=== PATIENT | male | born 1950 | race Caucasian/White ===

== ENCOUNTER → 2019-05-23 | Outpatient (CLI) | payer MEDICARE, OTHER | LOC: COL.VAS 09:59 | DX: N18.4 Chronic kidney disease, stage 4 (severe) (principal) ==

== ENCOUNTER 2021-01-19 15:47 | Inpatient (IN) | payer MEDICARE, OTHER ==
[~2021-01-19] VITALS: Ht 170.2 cm; Wt 102.0 kg
[2021-01-19] MEDS ORDERED: ASPIRIN 81M81 MG/TA2 PO (15:54)
[2021-01-19] MEDS ORDERED: SARAFEM20 M1 PO (15:55)
[2021-01-19] MEDS ORDERED: ZEBETA 5MG5 MG PO (15:55)
[2021-01-19] MEDS ORDERED: COZAAR100 MG PO (15:56)
[2021-01-19] MEDS ORDERED: PLAVIX 75MG TAB75 MG PO (15:57)
[2021-01-19] MEDS ORDERED: SODIUM BICARBO650 MG PO (15:58)
[2021-01-19] MEDS ORDERED: LASIX 40MG TABL40 MG PO (15:59)
[2021-01-19 16:00] VITALS: BP 151/97; PULSE 62; TEMP 97.8
[2021-01-19] MEDS ORDERED: LIPITOR 80MG80 MG PO (16:02)
[2021-01-19] MEDS ORDERED: MASON NATURAL2000 IU PO (16:03)
[2021-01-19] MEDS ORDERED: FLOMAX 0.40.4 MG/CAP PO (16:04)
[2021-01-19] MEDS ORDERED: NORVASC 10MG10 MG PO (16:04)
[2021-01-19 17:13] LABS: BASO # 0.1 K/mm3 (0.0-0.2); BASO % 0.8 % (0.0-2.0); EOS # 0.3 K/mm3 (0.0-0.7); EOS % 4.7 % (0-4.0); GRAN # 4.9 K/mm3 (1.4-6.5); GRAN % 76.1 % (42.2-75.2); LYMPH # 0.6 K/mm3 (1.2-3.4); MEAN CELL VOLUME 96 fl (80.0-100.0); MEAN CORPUSCULAR HGB CONC 32 g/dl (33.0-37.0); MEAN PLATELET VOLUME 8.9 fl (7.4-10.4); MONO # 0.6 K/mm3 (0.1-0.6); MONO % 9.1 % (1.7-9.3); PLATELET COUNT 315 K/mm3 (130-400); RED BLOOD COUNT 2.65 M/mm3 (4.20-5.60); REDCELL DISTRIBUTION WIDTH-CV 16.1 % (11.5-14.5)
[2021-01-19 17:14] LABS: HEMATOCRIT 25.4 % (42.0-52.0); HEMOGLOBIN 8.2 g/dl (13.5-18.0); MEAN CORPUSCULAR HEMOGLOBIN 31 pg (27.0-31.0)
[2021-01-19 17:27] LABS: INR 1.2 (0.8-3.0); PROTHROMBIN TIME 13.7 SECONDS (9.7-12.8)
[2021-01-19 17:29] LABS: ALBUMIN 2.1 gm/dL (3.4-4.8); CALCIUM 7.8 mg/dL (8.4-10.2); CREATININE, serum 7.39 mg/dL (0.72-1.25); POTASSIUM 4.8 mmol/L (3.5-4.5)
--- NOTE | 2021-01-19 17:55 | NUR ---
Patient admitted to room 325. Arrived via wheelchair with his . Alize & rounded & orders obtained. Ivf started to Lfa. Griffith inserted & patient tolerated well. Extensive pericares provided. Educated patient on importance of foreskin hygiene. Lack of hygiene noted. Renal dialysis dinner ordered. Restricted extrimity to RFA. Will monitor.
--- NOTE | 2021-01-19 18:46 | NUR ---
Patient has returned from Ct scan. He was very weak on his feet, 3 assist to the wheelchair. We used bed to transport patient back from Ct for his safety. Radiology to obtain chest xray on the floor with portable.
[2021-01-19 19:40] VITALS: BP 165/80; PULSE 54; TEMP 97.2
--- NOTE | 2021-01-19 22:43 | NUR ---
Patient resting in bed comfortably upon enter the room. Patient alert and oriented to self only. Patient denies any pain or discomfort. Griffith catheter patent and draining clear yellow urine. SCD in place. All scheduled meds given per MAY. Call light in reach. Bed alarms on. Fall precaution maintained.
[2021-01-19 23:14] VITALS: BP 183/88; PULSE 63; TEMP 97.9
[2021-01-20 03:43] VITALS: BP 157/79; PULSE 54; TEMP 98.4
[2021-01-20 04:06] LABS: MUCOUS Present /lpf; PH 6 (5-8); SQUAMOUS EPITHELIAL 0-2 /hpf; URINE APPEARANCE Hazy; URINE BACTERIA Rare /hpf; URINE BILIRUBIN Negative (NEGATIVE); URINE BLOOD 3+ (NEGATIVE); URINE COLOR Yellow; URINE GLUCOSE 2+ (NEGATIVE); URINE KETONE Negative (NEGATIVE); URINE LEUKOCYTE ESTERASE 1+ (NEGATIVE); URINE NITRATE Negative (NEGATIVE); URINE PROTEIN(semi-quant) 3+ (NEGATIVE); URINE RBC >50 /hpf; URINE UROBILINOGEN Negative (NEGATIVE); URINE WBC >50 /hpf
--- NOTE | 2021-01-20 04:38 | NUR ---
BP 183/88 around midnight. Patient denies any hypertensive symptoms. PRN hydralazine given per MAY. BP recheck was 157/79 around 0400 am. Call light in reach. Will continue to monitor.
[2021-01-20 04:42] LABS: COLLECTION METHOD CLEAN CATCH
--- NOTE | 2021-01-20 06:40 | NUR ---
Report received from NEDA Carballo. Pt. resting in bed w/ eyes closed at this time. Bed alarm on, call light and belongings in reach.
[2021-01-20 06:51] LABS: BASO # 0.1 K/mm3 (0.0-0.2); BASO % 0.7 % (0.0-2.0); EOS # 0.3 K/mm3 (0.0-0.7); EOS % 3.9 % (0-4.0); GRAN # 5.4 K/mm3 (1.4-6.5); GRAN % 77.7 % (42.2-75.2); LYMPH # 0.6 K/mm3 (1.2-3.4); LYMPH % 8.9 % (20.0-51.0); MEAN CELL VOLUME 95 fl (80.0-100.0); MEAN CORPUSCULAR HGB CONC 32 g/dl (33.0-37.0); MEAN PLATELET VOLUME 9.1 fl (7.4-10.4); MONO # 0.6 K/mm3 (0.1-0.6); MONO % 8.4 % (1.7-9.3); PLATELET COUNT 293 K/mm3 (130-400); RED BLOOD COUNT 2.53 M/mm3 (4.20-5.60)
[2021-01-20 06:57] LABS: HEMATOCRIT 24.1 % (42.0-52.0); HEMOGLOBIN 7.8 g/dl (13.5-18.0); MEAN CORPUSCULAR HEMOGLOBIN 31 pg (27.0-31.0)
[2021-01-20 07:10] LABS: CALCIUM 7.7 mg/dL (8.4-10.2); CREATININE, serum 7.32 mg/dL (0.72-1.25); PHOSPHOROUS 7.9 mg/dL (2.3-4.7); POTASSIUM 4.8 mmol/L (3.5-4.5)
[2021-01-20 07:57] VITALS: BP 156/84; PULSE 60; TEMP 98.2
--- NOTE | 2021-01-20 08:57 | NUR ---
Pt. progressing w/ plan of care. Pt. awake and alert. Pt. oriented to the month, time of the month, self, and location. Pt. is disoriented to the year. Pt. inuqiring when he will be able to be discharged. This RN explained to the patient Dr. Felder and CYBER OPS PLANNER Alize will need to see the patient and discuss the pt.'s kidney function. Pt. worked with physical therapist Jonny and is now OOB in the chair with chair alarm on. Breakfast called and ordered for the patient. Call light and belongings in reach.
--- NOTE | 2021-01-20 10:11 | NUR ---
Initial visit; Patient thanked Cnc Technician for offering God's blessings.
--- NOTE | 2021-01-20 10:40 | NUR ---
AMY met with patient while he was sitting in chair. Patient's , Amber, ([phone]) and his son were also in room. Patient reports that he and his reside in [place] and he has a walker and a wheelchair for DMEs and no home 02 needs. Patient's PCP is Dr. Brar in [place] and he receives prescriptions from [facility] in [place] without any difficulty affording or obtaining them. Patient was receiving home health care through [facility] in [place] prior to this but they had only started one week before hospitalization. Patient and state he has an MPOA and she will bring a copy to the hospital. Patient is interested in Inpatient Rehab and Barb is reviewing patient's chart. D/C Plan: IPR pending review
[2021-01-20 11:47] VITALS: BP 142/57; PULSE 52; TEMP 98.3
--- NOTE | 2021-01-20 13:45 | NUR ---
Pt. progressing w/ plan of care. Vein mapping complete at bedside. Dr. Sullivan in room to see patient regarding surgical consult for new fistula and TDC placement. Pt. sitting up eating lunch, family at bedside. Bed alarm on, call light and belongings in reach.
[2021-01-20 16:06] VITALS: BP 163/85; PULSE 63; TEMP 97.6
[2021-01-20 16:38] LABS: HEPATITIS B SURFACE ANTIBODY <2.0 (()); HEPATITIS B SURFACE ANTIGEN Negative (Negative); HEPATITIS C VIRUS ANTIBODY Negative (Negative)
--- NOTE | 2021-01-20 18:07 | NUR ---
Pt. progressing w/ plan of care. Plan for AV fistula tomorrow w/ Dr. Sullivan. Pt.'s Amber made aware on the telephone. Pt. calling out from room, requesting information regarding what is going on. Pt. reoriented regarding the plan of care. This RN explained to the patient his dinner will be coming shortly and he is in the correct place to get treatment. Bed alarm on, call light in reach.
[2021-01-20 19:33] VITALS: BP 152/82; PULSE 94; TEMP 97.8
--- NOTE | 2021-01-20 20:30 | NUR ---
PATIENT IS ALERT SITTING UP IN BED BUT NOT ORIENTED TO PLACE OR TIME. PATIENT IS SCHEDULED TO HAVE AV FISTULA IN THE AM. PATIENT TO BE MPO AT MIDNIGHT. PATIENT HAS RIGHT UPPER EXTREMITY RESTRICTED AND AN IV TO LEFT FOREARM. PATIENT HAS SCD'S TO BILATERAL LOWER EXTREMITIES. PATIENT HAS CHRISTIANSON WITH YELLOW AND CLEAR OUTPUT. PATIENT HAS EDEMA TO BILATERAL LOWER AND UPPER EXTREMITIES. PATIENT IS ON ACCUCHECK. PATIENT GIVEN WARM BLANKET. PATIENT DENIES PAIN OR FURTHER NEEDS AT THIS TIME. CALL LIGHT WITHIN REACH. HEAD TO TOE ASSESSMENT COMPLETE.
[2021-01-20 23:37] VITALS: BP 170/86; PULSE 60; TEMP 98
--- NOTE | 2021-01-20 23:54 | NUR ---
PATIENT GIVEN APRESALINE PER ORDERS FOR BP IN THE 170S
[2021-01-21] VITALS (10 sets, daily range): BP systolic 123–165; BP diastolic 56–88; PULSE 45–105; TEMP 97.5–98.6
--- NOTE | 2021-01-21 05:13 | NUR ---
PATIENT DID WELL THROUGHOUT THE NIGHT. SLEPT MOST OF NIGHT. STILL CONFUSED AND DISORIENTED TO TIME AND PLACE AND SOMETIMES TO SELF. HAS PROCEDURE SCHEDULED FOR 1030 AM. WILL WAIT UNTIL ARRIVES TO SIGN CONSENT. WILL REPORT TO DAYSHIFT.
--- NOTE | 2021-01-21 06:42 | NUR ---
Bedside shift report complete. Pt. resting in bed w/ eyes closed at this time. Bed alarm on, call light in reach. Pt. is NPO.
[2021-01-21 06:46] LABS: BASO # 0.1 K/mm3 (0.0-0.2); BASO % 0.9 % (0.0-2.0); EOS # 0.3 K/mm3 (0.0-0.7); EOS % 4.6 % (0-4.0); GRAN # 4.7 K/mm3 (1.4-6.5); GRAN % 74.7 % (42.2-75.2); HEMATOCRIT 22.9 % (42.0-52.0); HEMOGLOBIN 7.3 g/dl (13.5-18.0); LYMPH # 0.6 K/mm3 (1.2-3.4); LYMPH % 9.4 % (20.0-51.0); MEAN CELL VOLUME 97 fl (80.0-100.0); MEAN CORPUSCULAR HEMOGLOBIN 31 pg (27.0-31.0); MEAN CORPUSCULAR HGB CONC 32 g/dl (33.0-37.0); MEAN PLATELET VOLUME 9.3 fl (7.4-10.4); MONO # 0.6 K/mm3 (0.1-0.6); MONO % 9.8 % (1.7-9.3); PLATELET COUNT 268 K/mm3 (130-400); RED BLOOD COUNT 2.35 M/mm3 (4.20-5.60)
[2021-01-21 07:03] LABS: ALBUMIN 1.9 gm/dL (3.4-4.8); CALCIUM 7.7 mg/dL (8.4-10.2); CREATININE, serum 7.47 mg/dL (0.72-1.25); PHOSPHOROUS 7.9 mg/dL (2.3-4.7); POTASSIUM 4.9 mmol/L (3.5-4.5)
--- NOTE | 2021-01-21 10:08 | NUR ---
Pt. progressing w/ plan of care. Pt. is now in the OR to get dialysis cath and AV fistula. Pt. hooked up to IVF per order and consent signed. Supportive family in pt.'s room to wait for pt. to get back.
--- NOTE | 2021-01-21 12:54 | NUR ---
Pt. back from OR. Pt. very sleepy but responds to speech. Pt. resting in bed, no s/s pain.
--- NOTE | 2021-01-21 13:10 | NUR ---
Frequent vital signs cycling through on vital sign machine. Supportive family at bedside. Velia, dialysis nurse notified on the telephone pt. is back from the OR. Nurse Velia reports she plans to get in touch w/ Dr. Felder regarding dialysis treatment plans. Pt.'s HR is low at this time, Velia reports she is going to call Dr. Felder to update him with the plan of care. Velia reports she will explain pt.'s HR is low and will inquire about dialysis orders.
--- NOTE | 2021-01-21 14:30 | NUR ---
Pt. is down the benton in dialysis room w/ nurse Velia. Pt.'s supportive at bedside.
--- NOTE | 2021-01-21 14:44 | NUR ---
Head Grinder contacted MIKEY Day Director about referral. Patient's family is interested in patient completing DPOA-HC, however patient went down for surgery this am. SW left form with family.
--- NOTE | 2021-01-21 19:08 | NUR ---
Pt. ate well for dinner and now resting in bed. Call light and belongings in reach. Report given to NEDA Pritchett. Bed alarm on.
--- NOTE | 2021-01-21 19:46 | NUR ---
1645 Patient tolerated his 1st HD tx with 500 mL fluid removal. Next planned HD tx tomorrow, 01/22/21 @ 1000.
--- NOTE | 2021-01-21 21:00 | NUR ---
PATIENT IS ALERT BUT DROWSY. PATIENT IS ORIENTED TO SELF ONLY. PATIENT HAS FISTULA TO RIGHT HAND. THRILL AND BRUIT PRESENT. EDGES WELL APPROXIMATED. HAND IS SWOLLEN AND ELEVATED ON PILLOW. PATIENT HAS IV TO LEFT FOREARM. PATIENT RIGHT UPPER EXTREMITY RESTRICTED. PATIENT ON DIALYSIS DIET. PATIENT TO HAVE DIALYSIS IN THE AM. PATIENT HAS CHRISTIANSON. OUTPUT IS YELLOW AND CLEAR. PATIENT HAS SCDS ON BILATERAL LOWER EXTREMITIES. PATIENT HAS PITTING EDEMA TO BILATERAL LOWER EXTREMITIES. NO FURTHER NEEDS AT THIS TIME. HEAD TO TOE ASSESSMENT COMPLETE. CALL LIGHT WITHIN REACH.
[2021-01-22] VITALS (22 sets, daily range): BP systolic 105–181; BP diastolic 55–87; PULSE 51–79; TEMP 97.6–98.4
--- NOTE | 2021-01-22 05:13 | NUR ---
PATIENT DID WELL THROUGHOUT THE NIGHT. SLEPT MOST OF NIGHT. SEEMS TO BE MUCH LESS CONFUSED TODAY COMPARED TO YESTERDAY. SCHEDULED FOR DIALYSIS THIS AM. NO FURTHER NEEDS AT THIS TIME. WILL REPORT TO DAYSHIFT.
--- NOTE | 2021-01-22 08:00 | NUR ---
PATIENT IS ORIENTED X2 BUT DISPLAYS SOME CONFUSION/FORGETFULNESS. PATIENT HAS HX OF UNDERLINED DEMENTIA. VSS. DENIES PAIN. CHRISTIANSON TO DD WITH CBI INFUSING AT MOD RATE. URINE IS REDDISH WITH NO CLOTS NOTED. CBI TO INFUSE TODAY. NO C/O N/V. LEFT FORARM IV TO INT. NEW RIGHT FORARM FISTULA WITH GOOD BRUITT & THIRLL. RIGHT CHEST HD CATH. NOTED ECCYMOSIS TO CHEST AROUND HD CATH. LUE EDEMA +3 AND BLE +2 EDEMA. PATIENT TO GET DIALYSIS TODAY. RENAL DIET. AM BS WAS 83. AM MEDS GIVEN. 2 MAX ASSIST WITH ACITIVTY. PT/OT CONSULTED. HEAD TO TOE ASSESSMENT COMPLETE. NO OTHER NEEDS. CALL LIGHT IN REACH. BED ALARM ON.
--- NOTE | 2021-01-22 10:23 | NUR ---
PATIENT GOING DOWN TO DIALYSIS
[2021-01-22 11:07] LABS: ALBUMIN 1.6 gm/dL (3.4-4.8); CALCIUM 7.4 mg/dL (8.4-10.2); CREATININE, serum 6.22 mg/dL (0.72-1.25); PHOSPHOROUS 6.7 mg/dL (2.3-4.7); POTASSIUM 4.6 mmol/L (3.5-4.5)
[2021-01-22 11:10] LABS: BASO % 0.7 % (0.0-2.0); EOS # 0.2 K/mm3 (0.0-0.7); GRAN # 4.7 K/mm3 (1.4-6.5); GRAN % 79.3 % (42.2-75.2); LYMPH # 0.5 K/mm3 (1.2-3.4); MEAN CELL VOLUME 100 fl (80.0-100.0); MEAN CORPUSCULAR HGB CONC 31 g/dl (33.0-37.0); MEAN PLATELET VOLUME 9.5 fl (7.4-10.4); MONO # 0.5 K/mm3 (0.1-0.6); MONO % 8.5 % (1.7-9.3); PLATELET COUNT 236 K/mm3 (130-400); RED BLOOD COUNT 2.15 M/mm3 (4.20-5.60); REDCELL DISTRIBUTION WIDTH-CV 16.2 % (11.5-14.5)
[2021-01-22 11:11] LABS: HEMATOCRIT 21.4 % (42.0-52.0); MEAN CORPUSCULAR HEMOGLOBIN 31 pg (27.0-31.0)
[2021-01-22 11:12] LABS: HEMOGLOBIN 6.7 g/dl (13.5-18.0)
--- NOTE | 2021-01-22 11:15 | NUR ---
CALLED DIALYSIS NURSE YOSSI ABOUT HGB OF 6.7. DAVID HAS ALREADY BEEN NOTIFIED BY YOSSI. AWAITING ORDERS.
--- NOTE | 2021-01-22 12:36 | NUR ---
Patient tolerated his 2nd HD tx with 1.8L of fluid off. Next planned HD tx tomorrow, Tuesday01/23/21 @ 0830.
--- NOTE | 2021-01-22 13:37 | NUR ---
STARTED BLOOD TRANSFUSION PER ORDERS. VSS. PATIENT TOLERATING WELL SO FAR. WILL MONITOR.
--- NOTE | 2021-01-22 14:52 | NUR ---
Sand Molder spoke with Barb, IPR Director who advised plan is to admit patient tomorrow to IPR.
--- NOTE | 2021-01-22 17:51 | NUR ---
STARTED SECOND UNIT PER ORDERS. VSS. PATIENT TOLERATING WELL
--- NOTE | 2021-01-22 20:30 | NUR ---
PATIENT IS ALERT AND ORIENTED X4. IS MUCH LESS CONFUSED THAN YESTERDAY AND STATE HE IS FEELING MUCH BETTER. PATIENT HAS BLOOD INFUSING. PATIENT IS ON RENAL DIET. PATIENT HAS IV TO LEFT FOREARM AND FISTULA TO RIGHT ARM. BRUIT AN DTHRILL PRESENT. EDGES WELL APPROXIMATED ON INCISION. PATIENT HAS DIALYSIS CATHETER TO RIGHT CHEST. PATIENT ALSO HAS BRUISE TO RIGHT CHEST. PATIENT HAS PITTING EDEMA TO BILATERAL LOWER EXTREMITIES. PATIENT BROUGHT COFFEE AND WARM BLANKET. PATIENT DENIES PAIN OR FURTHER NEEDS AT THIS TIME. CALL LIGHT WITHIN REACH. HEAD TO TOE ASSESSMENT COMPLETE.
--- NOTE | 2021-01-22 21:35 | NUR ---
PATIENT HAD BLOOD PRESSURE OF 181/82 RECHECKED AND IT IS NOT 164/79. PATIENT GOT COZAAR PER ORDERS WITH EVENING MEDS. WILL CONTINUE TO MONITOR.
--- NOTE | 2021-01-22 22:09 | NUR ---
PATIENT BLOOD DONE INFUSING. PATIENT HAD INCONTINENT BOWEL, CLEANED UP AND LINENS CHANGED. PATIENT MOVED INTO BED FROM CHAIR. UNSTEADY GAIT.
[2021-01-23 03:43] VITALS: BP 158/70; PULSE 88; TEMP 97.8
--- NOTE | 2021-01-23 06:13 | NUR ---
PATIENT DID WELL THROUGHOUT THE NIGHT. SLEPT THROUGHOUT NIGHT. MOVED FROM CHIAR TO BED AFTER BLOOD TRANSFUSION, UNSTEADY GAIT. NO FURTHER NEEDS AT THIS TIME. CALL LIGHT WITHIN REACH. WILL REPORT TO DAYSHIFT.
[2021-01-23 07:11] LABS: ALBUMIN 1.7 gm/dL (3.4-4.8); CALCIUM 7.4 mg/dL (8.4-10.2); CREATININE, serum 5.08 mg/dL (0.72-1.25); PHOSPHOROUS 5.3 mg/dL (2.3-4.7); POTASSIUM 4.6 mmol/L (3.5-4.5)
[2021-01-23 07:18] LABS: BASO % 0.7 % (0.0-2.0); EOS # 0.2 K/mm3 (0.0-0.7); GRAN # 4.3 K/mm3 (1.4-6.5); GRAN % 71.6 % (42.2-75.2); LYMPH # 0.7 K/mm3 (1.2-3.4); LYMPH % 10.9 % (20.0-51.0); MEAN CORPUSCULAR HGB CONC 32 g/dl (33.0-37.0); MEAN PLATELET VOLUME 9.6 fl (7.4-10.4); MONO # 0.7 K/mm3 (0.1-0.6); MONO % 12.3 % (1.7-9.3); PLATELET COUNT 211 K/mm3 (130-400); RED BLOOD COUNT 2.76 M/mm3 (4.20-5.60); REDCELL DISTRIBUTION WIDTH-CV 16.4 % (11.5-14.5)
[2021-01-23 07:20] LABS: HEMATOCRIT 26.3 % (42.0-52.0); HEMOGLOBIN 8.5 g/dl (13.5-18.0); MEAN CELL VOLUME 95 fl (80.0-100.0); MEAN CORPUSCULAR HEMOGLOBIN 31 pg (27.0-31.0)
--- NOTE | 2021-01-23 07:30 | NUR ---
PATIENT GOING TO DIALYSIS
--- NOTE | 2021-01-23 08:00 | NUR ---
WENT DOWN TO DIALYSIS TO GIVE AM MEDS AND ASSESS. PATIENT SITTING UP IN DIALYSIS CHAIR WITH BREAKFAST. PATIENT REPORTS GOOD APPETITE. HEAD TO TOE ASSESSMENT COMPLETE. PATIENT REMAINS IN DIALYSIS
--- NOTE | 2021-01-23 09:50 | NUR ---
Patient tolerated HD tx with 2.5 L of fluid off. Next planned HD tx on Tuesday01/26/21 after rehab.
[2021-01-23 10:13] VITALS: BP 187/90; PULSE 64; TEMP 98.1
[2021-01-23 12:49] VITALS: BP 153/84; PULSE 70; TEMP 98.8
[2021-01-23] MEDS ORDERED: LEVAQUIN 5500 MG/TA1 PO (13:24)
--- NOTE | 2021-01-23 14:00 | NUR ---
PATIENT DISCHARGING TO IPR, SEE ORDERS.
--- NOTE | 2021-01-23 14:30 | NUR ---
Director Strategy met with patient to discuss DPOA-HC. Patient would like to designate his , Linda "Amber" as DPOA-HC and would prefer not to name an alternate agent. AMY assisted patient in completing the form. Patient provided his signature and AMY and AMY Ponce provided witness signature. SW provided original and copies to patient then placed a copy in patient's chart. SW contacted patient's , Amber to notify her that DPOA-HC document was completed. Patient to discharge to [facility] today.
== END 2021-01-23 14:00 | DRG 673 ==
LOC: SURG 15:47
PROVIDERS: Surgery; ADMIT Internal Medicine Nephrology
PROC: B5181ZA Fluoroscopy of Superior Vena Cava using Low Osmolar Contrast, Guidance (ICD-10-PCS; 2021-01-21)
PROC: 5A1D70Z Performance of Urinary Filtration, Intermittent, Less than 6 Hours Per Day (ICD-10-PCS; 2021-01-21)
PROC: 031B0ZF Bypass Right Radial Artery to Lower Arm Vein, Open Approach (ICD-10-PCS; 2021-01-21)
PROC: 0JH63XZ Insertion of Tunneled Vascular Access Device into Chest Subcutaneous Tissue and Fascia, Percutaneous Approach (ICD-10-PCS; principal; 2021-01-21 10:45)
PROC: 02HV33Z Insertion of Infusion Device into Superior Vena Cava, Percutaneous Approach (ICD-10-PCS; 2021-01-21 10:45)
DX: I12.0 Hypertensive chronic kidney disease with stage 5 chronic kidney disease or end stage renal disease (principal); G93.41 Metabolic encephalopathy; N18.6 End stage renal disease; N39.0 Urinary tract infection, site not specified; N17.9 Acute kidney failure, unspecified; D62 Acute posthemorrhagic anemia; I69.359 Hemiplegia and hemiparesis following cerebral infarction affecting unspecified side; E11.22 Type 2 diabetes mellitus with diabetic chronic kidney disease; D63.1 Anemia in chronic kidney disease; E78.5 Hyperlipidemia, unspecified; J44.9 Chronic obstructive pulmonary disease, unspecified; J32.0 Chronic maxillary sinusitis; E83.39 Other disorders of phosphorus metabolism; Z79.82 Long term (current) use of aspirin; Z87.891 Personal history of nicotine dependence; Z23 Encounter for immunization
CPT/HCPCS: J0690; J1644; J1756; J2704; J3010; J7030; P9016; Q5106

== ENCOUNTER 2021-01-23 11:43 | Inpatient (IN) | payer MEDICARE, OTHER ==
[~2021-01-23] VITALS: Ht 170.2 cm; Wt 79.0 kg
--- NOTE | 2021-01-23 10:15 | NUR ---
PT VERY CONFUSED. PT NOW IN ROOM 338 FOR CLOSE OBSV. PT YELLING OUT AND TRYING TO MOVE LEGS OUT OF BED. REPOSITIONED. PT HAS GENERALIZED EDEMA. NEXT DIALYSIS SCHEDULED FOR TOMORROW. PT DENIES PAIN. CALL LIGHT IN REACH. BED ALARM SET.
[~2021-01-23 11:43] MED LIST: ASPIRIN 81M81 MG/TA2 PO; COZAAR100 MG PO; FLOMAX 0.40.4 MG/CAP PO; LASIX 40MG TABL40 MG PO; LIPITOR 80MG80 MG PO; MASON NATURAL2000 IU PO; NORVASC 10MG10 MG PO; PLAVIX 75MG TAB75 MG PO; SARAFEM20 M1 PO; SODIUM BICARBO650 MG PO; ZEBETA 5MG5 MG PO
[2021-01-23] MEDS ORDERED: LEVAQUIN 5500 MG/TA1 PO (13:24)
--- NOTE | 2021-01-23 17:13 | NUR ---
LADI WITH NEPHROLOGY NOTIFIED OF CONSULT. /LADI DISCHARGED PATIENT TO [facility] TODAY
[2021-01-23 18:30] VITALS: BP 159/65; PULSE 55; TEMP 98.1
[2021-01-24 05:21] VITALS: BP 158/78; PULSE 66; TEMP 98.5
--- NOTE | 2021-01-24 07:34 | NUR ---
PT LAYING IN BED; WILL GET PT UP AND DRESSED FOR PT/OT & GT.
[2021-01-24 08:00] LABS: BASO # 0.1 K/mm3 (0.0-0.2); BASO % 0.9 % (0.0-2.0); EOS # 0.2 K/mm3 (0.0-0.7); EOS % 3.5 % (0-4.0); GRAN # 4.7 K/mm3 (1.4-6.5); GRAN % 74.6 % (42.2-75.2); LYMPH # 0.7 K/mm3 (1.2-3.4); LYMPH % 10.3 % (20.0-51.0); MEAN CELL VOLUME 97 fl (80.0-100.0); MEAN CORPUSCULAR HGB CONC 32 g/dl (33.0-37.0); MEAN PLATELET VOLUME 9.3 fl (7.4-10.4); MONO # 0.7 K/mm3 (0.1-0.6); MONO % 10.4 % (1.7-9.3); PLATELET COUNT 199 K/mm3 (130-400); REDCELL DISTRIBUTION WIDTH-CV 16.3 % (11.5-14.5)
[2021-01-24 08:05] LABS: HEMATOCRIT 26.1 % (42.0-52.0); HEMOGLOBIN 8.3 g/dl (13.5-18.0); MEAN CORPUSCULAR HEMOGLOBIN 31 pg (27.0-31.0)
[2021-01-24 08:25] LABS: CALCIUM 7.8 mg/dL (8.4-10.2); CREATININE, serum 4.4 mg/dL (0.72-1.25); POTASSIUM 4.5 mmol/L (3.5-4.5)
[2021-01-24 17:12] VITALS: BP 176/87; PULSE 63; TEMP 97.6
--- NOTE | 2021-01-24 19:26 | NUR ---
PT HAD UNEVENTFUL DAY. HAD NO COMPLAINTS. PT/OT AND GROUP THERAPY WENT WELL, HOWEVER PATIENT WAS UNABLE TO ROLL OR SIT UP IN BED, NEEDED TO USE SIT-STAND LIFT FOR HIM TO MOVE FROM BED TO WHEELCHAIR WITH OT. ONCE PATIENT RETURNED FROM THERAPY HE SAT IN THE WHEELCHAIR FOR HIS LUNCH, AND THEN GOT BACK TO BED. PT NAPPED A GREAT DEAL OF THE AFTERNOON, AND BECAME INCREASINGLY CONFUSED THE AFTERNOON PROGRESSED. BLOOD PRESSURE WAS ELEVATED THIS EVENING, PROVIDER NOTIFIED AND THE PROVIDER ORDERED HYDRALAZINE Q4PRN FOR SYSTOLIC >160 WELL A 1500ML FLUID RESTRICTION. NO OTHER CONCERNS AT THIS TIME. REPORT WAS GIVEN TO NEDA WISE.
--- NOTE | 2021-01-24 19:31 | NUR ---
PT PLEASANTLY CONFUSED AT THIS TIME. RESTING IN BED.
[2021-01-24 21:23] VITALS: BP 165/76; PULSE 62
[2021-01-25 05:09] VITALS: BP 142/71; PULSE 57; TEMP 98.3
--- NOTE | 2021-01-25 07:38 | NUR ---
Pt. progressing w/ plan of care. Pt. repositioned w/ NEDA Low. Pt. now sitting upright and eating breakfast. Bed alarm on, call light and belongings in reach.
--- NOTE | 2021-01-25 08:59 | NUR ---
Pt. progressing w/ plan of care. Pt. requesting more coffee this AM. Pt. reminded of fluid restriction and this RN gave pt. an additional 177ml of coffee as well as water so he could take his pills. Pt. resting in bed, denies further needs at this time. Call light and belongings in reach.
--- NOTE | 2021-01-25 15:15 | NUR ---
SW called spouse to assist with intake due to patient being unable to assist last attempts. Spouse is Amber [phone]. Spouse states that she and patient live in [facility]. Spouse provides that patient uses a walker and a w/c to get around, and patient obtains assistance from spouse with taking a shower. Spouse also provides that patient previously obtained services from [place], pharmacy is [facility], and pharmacy is [facility] in [place]. Spouse states that she is the patient's appointed DPOA-HC, and plan for patient is to return home up on DC. SW will continue to follow. DC Plan: home with spouse/[facility]
[2021-01-25 17:46] VITALS: BP 99/61; PULSE 60; TEMP 98.2
--- NOTE | 2021-01-25 18:12 | NUR ---
Pt. progressing w/ plan of care. Pt. was able to get OOB to the commode to have a BM today. The pt. has weakness to his R side and this RN and NEDA Alfonso assisted pt. with hygeine. The pt. denies pain and has been eating well with each meal. Bed alarm on, call light and belongings in reach.
--- NOTE | 2021-01-25 20:55 | NUR ---
PT RESTING IN BED. GENERALIZED EDEMA NOTED. NO RESP DISTRESS. MORE ALERT AND ORIENTED TONIGHT. CALL LIGHT IN REACH. BED ALARM SET.
[2021-01-26 00:40] VITALS: BP 139/66; PULSE 57
[2021-01-26 04:52] VITALS: BP 132/65; PULSE 55; TEMP 98.2
--- NOTE | 2021-01-26 09:56 | NUR ---
PT OUT TO [facility] WITH THERAPY AFTER EATING BREAKFAST. PT DENIES DENIES NEEDS, EATING AND DRINKI WELL.
[2021-01-26 11:25] VITALS: BP 127/65; PULSE 52; TEMP 97.9
[2021-01-26 12:21] VITALS: BP 148/81; BP 173/91; PULSE 64; PULSE 73; TEMP 98.1; TEMP 98.9
[2021-01-26 13:31] LABS: BASO # 0.1 K/mm3 (0.0-0.2); BASO % 0.9 % (0.0-2.0); EOS # 0.3 K/mm3 (0.0-0.7); EOS % 4.3 % (0-4.0); GRAN # 5.7 K/mm3 (1.4-6.5); GRAN % 76.3 % (42.2-75.2); HEMATOCRIT 25.3 % (42.0-52.0); LYMPH # 0.7 K/mm3 (1.2-3.4); LYMPH % 8.7 % (20.0-51.0); MEAN CELL VOLUME 98 fl (80.0-100.0); MEAN CORPUSCULAR HEMOGLOBIN 31 pg (27.0-31.0); MEAN CORPUSCULAR HGB CONC 32 g/dl (33.0-37.0); MEAN PLATELET VOLUME 9.3 fl (7.4-10.4); MONO # 0.7 K/mm3 (0.1-0.6); MONO % 9.1 % (1.7-9.3); PLATELET COUNT 228 K/mm3 (130-400); RED BLOOD COUNT 2.59 M/mm3 (4.20-5.60); REDCELL DISTRIBUTION WIDTH-CV 15.9 % (11.5-14.5)
[2021-01-26 13:41] LABS: ALBUMIN 1.9 gm/dL (3.4-4.8); CALCIUM 7.7 mg/dL (8.4-10.2); CREATININE, serum 5.61 mg/dL (0.72-1.25); PHOSPHOROUS 5.4 mg/dL (2.3-4.7); POTASSIUM 4.8 mmol/L (3.5-4.5)
--- NOTE | 2021-01-26 16:04 | NUR ---
PATIENT TOLERATED HIS 4TH HD TX WITH 4.3L FLUID REMOVAL. NEXT PLANNED HD TX ON Tuesday01/28/21 AFTER REHAB SESSIONS & LUNCH.
[2021-01-26 18:00] VITALS: BP 115/86; PULSE 55; TEMP 98.6
--- NOTE | 2021-01-26 18:52 | NUR ---
RECEIVED CHANGE OF SHIFT REPORT FROM DAY SHIFT NURSE.
--- NOTE | 2021-01-26 23:05 | NUR ---
PATIENT AMB WITH BATHROOM WITH AWKWARD GAIT, NEEDING CONSTANT CUES WITH STRIDE, GAIT/SPEED, WALKER PLACEMENT/USE. OBSERVED PATIENT TIRES EASILY, NO SOA OBSERVED. BED ALARM ON WHEN BACK TO IN, CALL LIGHT WITHIN REACH.
[2021-01-26 23:57] VITALS: BP 132/63; PULSE 57; TEMP 98.3
--- NOTE | 2021-01-27 02:42 | NUR ---
PATIENT SLEEPING, DOES NOT WAKE WHEN STAFF NURSE ENTERS ROOM ON ROUNDS. BED ALARM ON WITH CALL LIGHT WITHIN REACH. CHRISTIANSON TO KANCHAN, DRAINING CLEAR LIGHT TO MEDIUM MADHU.
[2021-01-27 05:02] VITALS: BP 130/63; PULSE 54; TEMP 97.8
--- NOTE | 2021-01-27 06:45 | NUR ---
Report received from NEDA Melo. Patient is sleeping in bed. Call light and bedside table are within reach. Will continue to monitor patient throughout shift.
--- NOTE | 2021-01-27 07:07 | NUR ---
CHANGE OF SHIFT REPORT GIVEN TO DAY SHIFT NURSE, TOMÁS RED.
--- NOTE | 2021-01-27 09:58 | NUR ---
Called dialysis center to see about discontinuing Griffith and neuro checks. This nurse was told DANN Chavez would give me a call back.
--- NOTE | 2021-01-27 11:00 | NUR ---
Patient's daughter is at bedside.
--- NOTE | 2021-01-27 11:50 | NUR ---
Dr. Nesbitt's PA, Kathy, stopped by and stated this nurse can DC neuro checks and she would put an order in to DC catheter as well.
[2021-01-27 12:37] VITALS: BP 138/62; PULSE 88; TEMP 98.6
--- NOTE | 2021-01-27 13:15 | NUR ---
This nurse DC'd patient's Griffith. Patient tolerated procedure well. This nurse has orders from DYAN Chavez to scan bladder 4 hours afterwards to ensure no urine is retained in bladder.
--- NOTE | 2021-01-27 15:13 | NUR ---
Patient has completed all therapies for the day and is sleeping in bed. Patient denies pain at this time. Call light and bedside table are within reach.
--- NOTE | 2021-01-27 15:33 | NUR ---
Admission QIM scores were reviewed by the team. Code of 6 chosen for eating was determined by team discussion to be the most usual performance for this patient during the assessment period. Code of 4 chosen for oral hygiene was determined by team discussion to be the most usual performance before interventions for this patient during the assessment period. Code of 2 chosen for toilet hygiene was determined by team discussion to be the most usual performance for this patient during the assessment period. Code of 88 chosen for toileting transfers was determined by team discussion to be the most usual performance for this patient during the assessment period. Code of 2 chosen for rolling left to right was determined by team discussion to be the most usual performance before interventions for this patient during the assessment period. Code of 1 chosen for sit to lying was determined by team discussion to be the most usual performance for this patient during the assessment period. Code of 2 chosen for lying to sitting on side of bed was determined by team discussion to be the most usual performance for this patient during the assessment period. Code of 88 for sit to stand was determined by team discussion to be the most usual performance for this patient during the assessment period. Code of 88 for chair/bed to chair transfers was determined by team discussion to be the most usual performance for this patient during the assessment period. Code of 88 chosen for walk 10 feet was determined by team discussion to be the most usual performance for this patient during the assessment period.--PD Viry
--- NOTE | 2021-01-27 16:54 | NUR ---
This nurse did a bladder scan on patient and he had 33 mls in bladder. Patient's brief was also wet but patient stated he was not aware of urinating. Will continue to monitor patient throughout shift. Call light and bedside table are within reach.
--- NOTE | 2021-01-27 16:55 | NUR ---
Slipcover Cutter met with patient to follow up from the weekend. Patient stated he was doing well and had no questions or concerns at this time.
[2021-01-27 18:00] VITALS: BP 166/76; PULSE 67; TEMP 97.5
--- NOTE | 2021-01-27 18:30 | NUR ---
Report rcvd from NEDA Gandhi.
--- NOTE | 2021-01-27 18:40 | NUR ---
Pt is laying in bed at this time. Denies any needs at this time.
--- NOTE | 2021-01-27 19:06 | NUR ---
Report given to NEDA Farr. Patient is resting in bed. Call light and bedside table are within.
[2021-01-28 05:09] VITALS: BP 143/73; PULSE 55; TEMP 98.1
--- NOTE | 2021-01-28 05:34 | NUR ---
PT HAD UNEVENTFUL NIGHT, SLEPT WELL FROM APPROXIMATELY 11PM UNTIL 5 AM. THE PATIENT DID CALL AT 0500 TO USE THE URINAL, HOWEVER, THE PATIENT STATES (ONCE THE URINAL IS IN PLACE) "I MAY THINK I DON'T NEED TO GO ANYMORE." THE PATIENT HAD NO OUTPUT, AND BRIEF IS DRY. WILL CONTACT PROVIDER WITH RESULTS OF BLADDER SCAN BEING >300.
[2021-01-28 12:15] VITALS: BP 138/63; PULSE 50; TEMP 97.4
--- NOTE | 2021-01-28 12:15 | NUR ---
Patient has completed all therapies for the day and is resting in recliner. Patient denies pain at this time. Call light and bedside table are within reach.
--- NOTE | 2021-01-28 12:30 | NUR ---
Patient has departed room to go to dialysis
--- NOTE | 2021-01-28 12:34 | NUR ---
Dr. Wong stopped by to check on patient and stated to hold off on putting the Griffith cath back in. He instructed this nurse to bladder scan the patient a couple of times a day to make sure he is not retaining urine. Dr. Wong also gave a VORB for Flomax 0.4 mg at HS. This nurse will comply with the doctor's orders.
[2021-01-28 13:11] LABS: BASO # 0.1 K/mm3 (0.0-0.2); EOS # 0.3 K/mm3 (0.0-0.7); EOS % 5.2 % (0-4.0); GRAN # 4.4 K/mm3 (1.4-6.5); GRAN % 73.3 % (42.2-75.2); LYMPH # 0.6 K/mm3 (1.2-3.4); LYMPH % 9.5 % (20.0-51.0); MEAN CELL VOLUME 97 fl (80.0-100.0); MEAN CORPUSCULAR HGB CONC 32 g/dl (33.0-37.0); MEAN PLATELET VOLUME 9.8 fl (7.4-10.4); MONO # 0.6 K/mm3 (0.1-0.6); MONO % 10.7 % (1.7-9.3); PLATELET COUNT 248 K/mm3 (130-400)
[2021-01-28 13:12] LABS: HEMATOCRIT 23.3 % (42.0-52.0); HEMOGLOBIN 7.4 g/dl (13.5-18.0); MEAN CORPUSCULAR HEMOGLOBIN 31 pg (27.0-31.0)
[2021-01-28 13:28] LABS: ALBUMIN 2.1 gm/dL (3.4-4.8); CALCIUM 7.7 mg/dL (8.4-10.2); CREATININE, serum 4.75 mg/dL (0.72-1.25); POTASSIUM 4.9 mmol/L (3.5-4.5)
--- NOTE | 2021-01-28 15:46 | NUR ---
PATIENT TOLERATED HIS 5TH HD TX WITH 4.5L FLUID REMOVAL. NEXT PLANNED HD TX ON Tuesday01/30/21 AFTER REHAB & LUNCH.
[2021-01-28 16:06] VITALS: BP 170/88; PULSE 62; TEMP 98
[2021-01-28 16:38] VITALS: BP 163/75; PULSE 63; TEMP 97.9
[2021-01-28 19:05] VITALS: BP 152/66; PULSE 68; TEMP 97.8
[2021-01-28 23:49] VITALS: BP 127/62; PULSE 54; TEMP 97.9
--- NOTE | 2021-01-29 03:11 | NUR ---
PT VOIDED 75CC PER URINAL. PERICARE GIVEN. CHANGED TO ADULT DIAPERS. AQUCEL FOAM DRSG TO COCCYX CDI.
--- NOTE | 2021-01-29 04:28 | NUR ---
PT VOIDED 100CC YELLOW HAZY URINE. POST VOID BLADDER SCAN INDICATED 181CC. PT DENIES DISCOMFORT.
[2021-01-29 04:50] VITALS: BP 136/69; PULSE 59; TEMP 98.2
--- NOTE | 2021-01-29 06:50 | NUR ---
Report received from NEDA Low. Patient is resting comfortably in bed. Patient denies pain at this time. Call light and bedside table are within reach. WIll continue to monitor patient throughout shift.
--- NOTE | 2021-01-29 10:57 | NUR ---
Patient's is at bedside.
--- NOTE | 2021-01-29 12:13 | NUR ---
Operator Specialist Communications met with patient and patient's , Amber to provide copy of team conference notes. AMY advised we will re-evaluate next week for a discharge date. AMY scheduled patient family conference for at 1300.
[2021-01-29 12:15] VITALS: BP 137/69; PULSE 53; TEMP 97.4
--- NOTE | 2021-01-29 15:00 | NUR ---
Patient has completed all therapies for the day and is resting in the recliner. Patient denies pain at this time. Call light and bedside table are within reach.
[2021-01-29 18:09] VITALS: BP 139/69; PULSE 60; TEMP 98.1
--- NOTE | 2021-01-29 20:00 | NUR ---
PT RESTING IN BED. NO DISTRESS. PALE IN COLOR. CALL LIGHT IN REACH. BED ALARM SET.
[2021-01-30 00:15] VITALS: BP 132/66; PULSE 57; TEMP 98
[2021-01-30 05:09] VITALS: BP 140/61; PULSE 71; TEMP 98.3
--- NOTE | 2021-01-30 06:42 | NUR ---
shift report received from NEDA Low
--- NOTE | 2021-01-30 07:30 | NUR ---
assisted CLINICAL TRIALS ASSISTANT with repositioning patient up in bed for breakfast, SCDS removed at this time and has 3+edema to bilateral lower legs, pedal pulses strong, will complete assessment after therapy
--- NOTE | 2021-01-30 08:30 | NUR ---
speech therapy in to work with patient
--- NOTE | 2021-01-30 09:26 | NUR ---
occupational therpay now in to work with patient
--- NOTE | 2021-01-30 10:31 | NUR ---
assessment completed, see interventions for further info
--- NOTE | 2021-01-30 12:30 | NUR ---
to dialysis per WC
[2021-01-30 12:57] VITALS: BP 134/60; PULSE 55; TEMP 97.8
[2021-01-30 13:01] LABS: BASO # 0.1 K/mm3 (0.0-0.2); BASO % 1.1 % (0.0-2.0); EOS # 0.3 K/mm3 (0.0-0.7); EOS % 4.6 % (0-4.0); GRAN # 4.7 K/mm3 (1.4-6.5); GRAN % 74.5 % (42.2-75.2); LYMPH # 0.6 K/mm3 (1.2-3.4); LYMPH % 9.8 % (20.0-51.0); MEAN CELL VOLUME 98 fl (80.0-100.0); MEAN CORPUSCULAR HGB CONC 31 g/dl (33.0-37.0); MEAN PLATELET VOLUME 9.5 fl (7.4-10.4); MONO # 0.6 K/mm3 (0.1-0.6); MONO % 9.5 % (1.7-9.3); PLATELET COUNT 274 K/mm3 (130-400); RED BLOOD COUNT 2.44 M/mm3 (4.20-5.60); REDCELL DISTRIBUTION WIDTH-CV 16.5 % (11.5-14.5)
[2021-01-30 13:02] LABS: HEMATOCRIT 23.9 % (42.0-52.0); HEMOGLOBIN 7.5 g/dl (13.5-18.0); MEAN CORPUSCULAR HEMOGLOBIN 31 pg (27.0-31.0)
[2021-01-30 13:16] LABS: ALBUMIN 2.2 gm/dL (3.4-4.8); CALCIUM 7.7 mg/dL (8.4-10.2); CREATININE, serum 4.23 mg/dL (0.72-1.25); PHOSPHOROUS 4.5 mg/dL (2.3-4.7); POTASSIUM 4.5 mmol/L (3.5-4.5)
--- NOTE | 2021-01-30 13:20 | NUR ---
REPORT RECEIVED FROM LUISITO RED. PT IN DIALYSIS @ THIS TIME.
--- NOTE | 2021-01-30 16:20 | NUR ---
PT RETURNS FROM DIALYSIS. ASSISTED INTO BED WITH 2 ASSIST ET GAITBELT. PT IS A&O X3 BUT IS FORGETFUL. PT'S LUNG SOUNDS ARE CLEAR TO AUSCULATION, RESPIRATIONS UNLABORED. DIALYSIS CATHETER ON RIGHT CHEST HAS DRESSING ON IT, FISTULA ON RIGHT ARM BRUIT ET THRILL ARE PRESENT. PT DENIES OTHER NEEDS. HOB IS ELEVATED, HEELS FLOATED ON PILLOWS. BED ALARM ON, CALL LIGHT WITHIN REACH.
[2021-01-30 17:46] VITALS: BP 174/81; PULSE 58; TEMP 97.8
--- NOTE | 2021-01-30 19:53 | NUR ---
RECEIVED CHANGE OF SHIFT REPORT FROM DAY SHIFT NURSE.
[2021-01-31 00:46] VITALS: BP 148/68; PULSE 57; TEMP 98.3
[2021-01-31 05:33] VITALS: BP 131/63; PULSE 55; TEMP 97.9
--- NOTE | 2021-01-31 07:29 | NUR ---
CHANGE OF SHIFT REPORT GIVEN TO DAY SHIFT NURSE, TOMÁS RED. PATIENT OBSERVED HAVING SOME DIFFICULTY FOLLOWING DIRECTION WITH USING CALL LIGHT AND BED CONTROL. SPEECH CLEAR WITH CONVERSATION, NO FACIAL DROOPING OBSERVED. OBSERVED PATIENT REPORTING THAT HE FELT VERY TIRED AFTER DIALYSIS YESTERDAY. DENIED CHEST PAIN/SOA DURING SHIFT. DENIED NUMBNESS/TINGLING TO EXTREMITIES DURING SHIFT.
--- NOTE | 2021-01-31 09:46 | NUR ---
Patient's is at bedside.
--- NOTE | 2021-01-31 10:45 | NUR ---
This nurse got a call stating patient had a fall. When this nurse entered the room a nurse, OT, and ON SITE SERVICES SPECIALIST was in the bathroom with patient. Patient denied hitting his head or hurting his back. OT stated patient slipped out of the wheelchair and kind of slid out of wheelchair. Patient was assisted by staff to stand up and get back in the wheelchair. Call light and bedside table are within reach.
--- NOTE | 2021-01-31 11:01 | NUR ---
Patient c/o pain in the area where he has a hernia. Patient refused pain medication and stated he would wait to see if pain went away. Patient also refused to participate in therapy and to perform ADLs d/t the pain he was experiencing and stated all he wants to do is go back to bed. This nurse put patient back in bed. Call light and bedside table are within reach.
[2021-01-31 12:00] VITALS: BP 138/63; PULSE 50; TEMP 98
[2021-01-31 18:04] VITALS: BP 157/70; PULSE 65; TEMP 98.1
--- NOTE | 2021-01-31 19:00 | NUR ---
RECEIVED CHANGE OF SHIFT REPORT FROM DAY SHIFT NURSE. PATIENT RESTING IN BED DURING REPORT, BED ALARM ON WITH CALL LIGHT WITHIN REACH.
--- NOTE | 2021-01-31 19:23 | NUR ---
HAD 100 PERCENT INTAKE OF HS CHEESE SANDWICH. PATIENT DENIES ANY OTHER NEEDS AT THIS TIME.
[2021-01-31 21:21] LABS: COLLECTION METHOD CATHETER
[2021-01-31 21:28] LABS: PH 6 (5-8); SQUAMOUS EPITHELIAL None Seen /hpf; URINE APPEARANCE Clear; URINE BACTERIA Rare /hpf; URINE BILIRUBIN Negative (NEGATIVE); URINE BLOOD 1+ (NEGATIVE); URINE COLOR Yellow; URINE GLUCOSE 2+ (NEGATIVE); URINE KETONE Negative (NEGATIVE); URINE LEUKOCYTE ESTERASE Negative (NEGATIVE); URINE NITRATE Negative (NEGATIVE); URINE PROTEIN(semi-quant) 3+ (NEGATIVE); URINE RBC 0-2 /hpf; URINE UROBILINOGEN Negative (NEGATIVE)
[2021-01-31 23:25] VITALS: BP 161/71; PULSE 63; TEMP 98.6
--- NOTE | 2021-02-01 01:37 | NUR ---
DENIES URGE TO VOID AT THIS TIME. DENIES ANY DISCOMFORT AT THIS TIME. BED ALARM ON WITH CALL LIGHT WITHIN REACH.
[2021-02-01 01:42] VITALS: BP 142/74
--- NOTE | 2021-02-01 02:00 | NUR ---
Patient care, medication administration and nursing documentation occurred during a Daylight Savings Time Change.
--- NOTE | 2021-02-01 02:11 | NUR ---
VOIDED BUT SPILLED URINAL, CHANGED WET PULL UPS WITH PATIENT NEEDING MOD ASSIST TO TURN FROM SIDE TO SIDE FOR PULL CHANGING AND CHUX PAD CHANGING. PATIENT TOLERATED ACTIVITY WITH NO VERBALIZED COMPLAINTS AT THE TIME.
[2021-02-01 04:45] VITALS: BP 151/71; PULSE 62; TEMP 97.3
--- NOTE | 2021-02-01 06:40 | NUR ---
Patient is sleeping and bed. Call light and bedside table are within reach. Will continue to monitor patient throughout shift.
--- NOTE | 2021-02-01 06:55 | NUR ---
CHANGE OF SHIFT REPORT GIVEN TO DAY SHIFT NURSE, TOMÁS RED.
--- NOTE | 2021-02-01 09:30 | NUR ---
Patient's report patient has no peripheral vision on the right side and she and this nurse discussed how he is leaning more to the left than previously. Patient also does not use right hand unless qued to do so. Patient seems to lack the motivation to do anything other than lying in bed so this nurse explained to him the more he does the better he will get. Patient agreed. Not sure of patient has given up but he states he has not and will try to work harder and getting up and walking.
[2021-02-01 12:00] VITALS: BP 118/51; PULSE 52; TEMP 97.9
[2021-02-01 18:00] VITALS: BP 147/70; PULSE 65; TEMP 97.7
--- NOTE | 2021-02-01 18:55 | NUR ---
RECEIVED CHANGE OF SHIFT REPORT FROM DAY SHIFT NURSE.
[2021-02-02 00:59] VITALS: BP 136/62; PULSE 57; TEMP 97.9
[2021-02-02 05:18] VITALS: BP 140/61; PULSE 54; TEMP 98
--- NOTE | 2021-02-02 07:00 | NUR ---
Report received from NEDA Melo. PT in bed sleeping, will continue to monitor.
--- NOTE | 2021-02-02 07:09 | NUR ---
CHANGE OF SHIFT REPORT GIVEN TO DAY SHIFT NURSE, MICHAEL RED.
--- NOTE | 2021-02-02 08:15 | NUR ---
Assessment charted. Pt in bed resting, ate most of breakfast well. Able to answer all orientation questions except date within the month and day of week but knows its Jan 2021 and he is at the hospital in [place]. Rasheed HAYNES IVY is puffy and swollen from AV fistula placement. pt states he feels tired today. Turning q2h to offest reddened sacrem. BLE +1 edema. Will conitnue ot monitor.
[2021-02-02 12:50] LABS: ALBUMIN 2.2 gm/dL (3.4-4.8); BASO # 0.1 K/mm3 (0.0-0.2); BASO % 1.2 % (0.0-2.0); CALCIUM 7.6 mg/dL (8.4-10.2); CREATININE, serum 4.96 mg/dL (0.72-1.25); EOS # 0.2 K/mm3 (0.0-0.7); EOS % 3.8 % (0-4.0); GRAN # 4.5 K/mm3 (1.4-6.5); LYMPH # 0.6 K/mm3 (1.2-3.4); MEAN CELL VOLUME 100 fl (80.0-100.0); MEAN CORPUSCULAR HGB CONC 31 g/dl (33.0-37.0); MEAN PLATELET VOLUME 9.1 fl (7.4-10.4); MONO # 0.6 K/mm3 (0.1-0.6); MONO % 9.3 % (1.7-9.3); PHOSPHOROUS 5.3 mg/dL (2.3-4.7); PLATELET COUNT 325 K/mm3 (130-400); POTASSIUM 4.6 mmol/L (3.5-4.5)
[2021-02-02 12:52] LABS: HEMATOCRIT 25.1 % (42.0-52.0); HEMOGLOBIN 7.8 g/dl (13.5-18.0); MEAN CORPUSCULAR HEMOGLOBIN 31 pg (27.0-31.0)
[2021-02-02 15:32] VITALS: BP 174/91; PULSE 62; TEMP 97.8
--- NOTE | 2021-02-02 15:33 | NUR ---
PATIENT TOLERATED HD TX WITH 4.5L FLUID REMOVAL. NEXT PLANNED HD TX ON TUESDAY AFTER THERAPIES & LUNCH.
[2021-02-02 17:33] VITALS: BP 176/71; PULSE 62; TEMP 98.3
--- NOTE | 2021-02-02 18:24 | NUR ---
Pt went to HD this afternoon and returned, rested well at dialysis and remains in bed after being in recliner most of day. Seems more oriented and following commands well, barillas had minimal maount of clear yellow urine to DD in bag at side of bed. Needs to help maintain fluid restriction. Will give report to nightshift nurse who will reusme care.
--- NOTE | 2021-02-02 20:23 | NUR ---
Patient assessed around 193. Denies having pain and discomfort. HD catheter to right chest, dressing CDI. AV fistula site to right forearm. Egdes well approximated. Bruising present. Positive bruit and thrill. Swelling to RUE. Has HD today. Seems tired, but awakens easily. Indwelling barillas catheter patent, draining clear yellow urine. 2+ edema BLE. Given sandwich as requested. Voices no further questions, needs, or concerns at this time. In bed with call light within reach.
[2021-02-02 23:55] VITALS: BP 165/89; PULSE 77; TEMP 98
[2021-02-03 03:59] VITALS: BP 157/75; PULSE 65; TEMP 98.7
--- NOTE | 2021-02-03 05:50 | NUR ---
Patient has denied having pain and discomfort this shift. Voices no questions, needs, or concerns. In bed with call light within reach.
--- NOTE | 2021-02-03 06:30 | NUR ---
Report received from NEDA Monahan. Patient is resting in bed and denies pain at this time. Call light and bedside table are within reach. Will continue to monitor patient throughout shift.
[2021-02-03 12:00] VITALS: BP 136/57; PULSE 53; TEMP 98
--- NOTE | 2021-02-03 13:57 | NUR ---
SW met with the patient to introduce oneself and to follow up. The patient reports that he is doing okay. He states that he is done with therapy for the day. He had no concerns for SW at this time.
[2021-02-03 18:00] VITALS: BP 155/68; PULSE 66; TEMP 98
--- NOTE | 2021-02-03 21:00 | NUR ---
Patient is resting in bed, alert and oriented x 4, VSS, denies pain, nausea or vomiting. Assessment completed, medications provided. No further needs at this time. Call light within reach.
[2021-02-04] VITALS: BP 137/61; PULSE 52; TEMP 97.8
--- NOTE | 2021-02-04 00:28 | NUR ---
Patient weight using bedscale 92.1kg.
[2021-02-04 05:25] VITALS: BP 138/66; PULSE 52; TEMP 98.3
--- NOTE | 2021-02-04 06:17 | NUR ---
Patient has had a calm night. Pt has been alert and oriented. No sleeping disruption. All needs met. Shift report will be given to day RN.
--- NOTE | 2021-02-04 06:47 | NUR ---
Report received by NEDA Bell. Patient is sleeping in bed. Call light and bedside table are within reach. Will continue to monitor throughout shift.
[2021-02-04 12:00] VITALS: BP 160/76; PULSE 60; TEMP 96
--- NOTE | 2021-02-04 12:30 | NUR ---
Patient is at dialysis.
[2021-02-04 13:05] LABS: BASO # 0.1 K/mm3 (0.0-0.2); BASO % 0.9 % (0.0-2.0); EOS # 0.3 K/mm3 (0.0-0.7); EOS % 4.7 % (0-4.0); GRAN # 4.6 K/mm3 (1.4-6.5); GRAN % 72.3 % (42.2-75.2); LYMPH # 0.8 K/mm3 (1.2-3.4); LYMPH % 11.9 % (20.0-51.0); MEAN CELL VOLUME 100 fl (80.0-100.0); MEAN CORPUSCULAR HGB CONC 32 g/dl (33.0-37.0); MEAN PLATELET VOLUME 9.4 fl (7.4-10.4); MONO # 0.6 K/mm3 (0.1-0.6); MONO % 9.9 % (1.7-9.3); PLATELET COUNT 339 K/mm3 (130-400); RED BLOOD COUNT 2.57 M/mm3 (4.20-5.60); REDCELL DISTRIBUTION WIDTH-CV 17.2 % (11.5-14.5)
[2021-02-04 13:06] LABS: HEMATOCRIT 25.6 % (42.0-52.0); HEMOGLOBIN 8.1 g/dl (13.5-18.0); MEAN CORPUSCULAR HEMOGLOBIN 32 pg (27.0-31.0)
[2021-02-04 13:13] LABS: ALBUMIN 2.2 gm/dL (3.4-4.8); CALCIUM 7.7 mg/dL (8.4-10.2); CREATININE, serum 4.45 mg/dL (0.72-1.25); PHOSPHOROUS 5.3 mg/dL (2.3-4.7); POTASSIUM 4.4 mmol/L (3.5-4.5)
--- NOTE | 2021-02-04 14:29 | NUR ---
SW contacted the patient's , Amber, to review the IPR Team Conference Note. The team plans to re-evaluate the patient next Tuesday. Amber verbalized understanding and is in agreement to the plan. Amber confirms that she will be here tomorrow at 1300 for the patient/family meeting. SW attempted to meet with the patient to review the above with him. He was not in the room. AMY placed the IPR Team Conference Notes in the patient's room.
[2021-02-04 15:42] VITALS: BP 172/85; PULSE 65; TEMP 98.2
--- NOTE | 2021-02-04 16:05 | NUR ---
Patient tolerated HD tx with 4L fluid removal. Next planned HD tx on Tuesday02/06/21 after therapies & lunch.
--- NOTE | 2021-02-04 16:59 | NUR ---
Dr. Alvarado saw patient and determined patient was more frustrated than depressed and stated she would adjust his medication.
--- NOTE | 2021-02-04 19:00 | NUR ---
RECEIVED CHANGE OF SHIFT REPORT FROM DAY SHIFT NURSE. BED ALARM ON WHEN IN BED WITH CALL LIGHT WITHIN REACH.
--- NOTE | 2021-02-04 20:00 | NUR ---
OBSERVED PATIENT ABLE TO ASSIST WITH TURNING FROM SIDE TO SIDE. HERNIA TO RIGHT GROIN STILL CONTINUES, PATIENT STATES HAS HAD HERNIA FOR A LONG TIME. CHRISTIANSON TO DD CONTINUES FOR URINARY RETENTION. FLUID RESTRICTION CONTINUES PATIENT HAS HEMODIALYSIS -- EVERY WEEK.DENIES CHEST PAIN/SOA/NAUSEA AT THIS TIME. BED ALARM ON, WITH CALL LIGHT WITHIN REACH.
[2021-02-04 23:52] VITALS: BP 152/68; PULSE 64; TEMP 98.3
[2021-02-05 05:10] VITALS: BP 154/63; PULSE 63; TEMP 98.2
--- NOTE | 2021-02-05 07:05 | NUR ---
CHANGE OF SHIFT REPORT GIVEN TO DAY SHIFT NURSE, MIR ERD. BED ALARM ON WITH CALL LIGHT WITHIN REACH.
[2021-02-05 11:41] VITALS: BP 144/66; PULSE 80; TEMP 97.7
--- NOTE | 2021-02-05 13:30 | NUR ---
SW attended the patient/family meeting. The patient's and daughter at bedside. Also present was IPR director, PT, OT, and ST. IPR Director started by explaining the purpose of the meeting. PT/OT/ST then discussed the patient's progress so far. The team informed them how the patient had a great day today and showed much improvement from yesterday. IPR Director informed the patient and his family how plan is to re-eval the patient next Tuesday and if he continues to show improvement, they may be ready to discharge him by the end of next week. The patient and his family verbalized understanding. His expressed how she notices all the improvements in the patient as well. The team answered all questions. SW to continue to follow.
[2021-02-05 16:07] VITALS: BP 153/69; PULSE 64; TEMP 97.9
[2021-02-06] VITALS: BP 155/77; PULSE 57; TEMP 98
--- NOTE | 2021-02-06 | NUR ---
NPOT THIS TIME.
[2021-02-06 04:00] VITALS: BP 137/67; PULSE 57; TEMP 98.2
--- NOTE | 2021-02-06 06:14 | NUR ---
PT RESTING. NO DISTRESS.
[2021-02-06 07:03] LABS: MEAN CELL VOLUME 102 fl (80.0-100.0); MEAN CORPUSCULAR HGB CONC 31 g/dl (33.0-37.0); MEAN PLATELET VOLUME 8.9 fl (7.4-10.4); PLATELET COUNT 272 K/mm3 (130-400); RED BLOOD COUNT 2.22 M/mm3 (4.20-5.60); REDCELL DISTRIBUTION WIDTH-CV 17.2 % (11.5-14.5)
[2021-02-06 07:07] LABS: HEMATOCRIT 22.7 % (42.0-52.0); MEAN CORPUSCULAR HEMOGLOBIN 32 pg (27.0-31.0)
[2021-02-06 07:10] LABS: INR 1.3 (0.8-3.0); PROTHROMBIN TIME 13.9 SECONDS (9.7-12.8)
[2021-02-06 07:19] LABS: CALCIUM 7.8 mg/dL (8.4-10.2); CREATININE, serum 4.1 mg/dL (0.72-1.25); POTASSIUM 4.3 mmol/L (3.5-4.5)
--- NOTE | 2021-02-06 10:37 | NUR ---
PT BACK FROM ENDO TRANSFERED TO CHAIR, DENIES ANY NEEDS AT THIS TIME.
[2021-02-06 11:15] VITALS: BP 130/56; PULSE 45; TEMP 97.5
[2021-02-06 16:49] VITALS: BP 171/72; PULSE 64; TEMP 97.7
[2021-02-07 00:45] VITALS: BP 129/51; PULSE 64; TEMP 98
[2021-02-07 05:43] VITALS: BP 130/63; PULSE 55; TEMP 98.4
--- NOTE | 2021-02-07 06:53 | NUR ---
Report received from NEDA Low. Patient is sleeping in bed. Call light and bedside table are within reach. Will continue to monitor patient throughout shift.
[2021-02-07 12:00] VITALS: BP 136/56; PULSE 56; TEMP 98
[2021-02-07 15:23] VITALS: BP 136/56; PULSE 56; TEMP 98
[2021-02-08 01:14] VITALS: BP 132/60; PULSE 54; TEMP 98.2
[2021-02-08 05:11] VITALS: BP 134/63; PULSE 50; TEMP 99.5
--- NOTE | 2021-02-08 06:40 | NUR ---
Report received from NEDA Low. Patient is sleeping in bed. Call light and bedside table are within reach. Will continue to monitor patient throughout shift.
[2021-02-08 11:39] VITALS: BP 145/66; PULSE 50; TEMP 97.9
[2021-02-08 18:00] VITALS: BP 149/68; PULSE 51; TEMP 98.1
--- NOTE | 2021-02-08 21:06 | NUR ---
BOWEL PREP FOR COLONOSCOPY CONTINUES. PT STARTING TO HAVE RESULTS.
[2021-02-09 01:00] VITALS: BP 144/60; PULSE 49; TEMP 97.8
[2021-02-09 05:21] VITALS: BP 136/61; PULSE 79; TEMP 98.2
[2021-02-09 13:37] LABS: BASO # 0.1 K/mm3 (0.0-0.2); BASO % 1.2 % (0.0-2.0); EOS # 0.3 K/mm3 (0.0-0.7); EOS % 3.8 % (0-4.0); GRAN # 5.3 K/mm3 (1.4-6.5); GRAN % 76.7 % (42.2-75.2); LYMPH # 0.6 K/mm3 (1.2-3.4); LYMPH % 8.1 % (20.0-51.0); MEAN CELL VOLUME 101 fl (80.0-100.0); MEAN CORPUSCULAR HGB CONC 31 g/dl (33.0-37.0); MONO # 0.7 K/mm3 (0.1-0.6); MONO % 9.6 % (1.7-9.3); PLATELET COUNT 355 K/mm3 (130-400); RED BLOOD COUNT 2.71 M/mm3 (4.20-5.60); REDCELL DISTRIBUTION WIDTH-CV 17.8 % (11.5-14.5)
[2021-02-09 13:40] LABS: HEMATOCRIT 27.3 % (42.0-52.0); HEMOGLOBIN 8.5 g/dl (13.5-18.0); MEAN CORPUSCULAR HEMOGLOBIN 31 pg (27.0-31.0)
[2021-02-09 13:54] LABS: ALBUMIN 2.5 gm/dL (3.4-4.8); CALCIUM 7.8 mg/dL (8.4-10.2); CREATININE, serum 4.61 mg/dL (0.72-1.25); PHOSPHOROUS 4.6 mg/dL (2.3-4.7); POTASSIUM 4.6 mmol/L (3.5-4.5)
[2021-02-09 16:27] VITALS: BP 170/81; PULSE 58; TEMP 97.2
--- NOTE | 2021-02-09 16:49 | NUR ---
PATIENT TOLERATED HIS HD TX WITH 3 L FLUID REMOVAL. NEXT PLANNED HD TX ON Tuesday02/11/21 AFTER REHAB THERAPIES & LUNCH.
--- NOTE | 2021-02-09 19:00 | NUR ---
RECEIVED CHANGE OF SHIFT REPORT FROM DAY SHIFT NURSE.
[2021-02-10 05:44] VITALS: BP 140/58; PULSE 60; TEMP 99
--- NOTE | 2021-02-10 07:15 | NUR ---
CHANGE OF SHIFT REPORT GIVEN TO DAY SHIFT NURSE, MIR RED.
[2021-02-10 11:29] VITALS: BP 156/66; PULSE 51; TEMP 9735
--- NOTE | 2021-02-10 15:19 | NUR ---
AMY met with the patient to follow up after the weekend. The patient was resting in bed. He reports that he is doing good and that the weekend went well. He had no questions for SW at this time.
[2021-02-10 17:05] VITALS: BP 139/67; PULSE 54; TEMP 97.9
--- NOTE | 2021-02-10 18:28 | NUR ---
PT CURRENTLY RESTING IN BED, DENIES ANY NEEDS REPORT TIRED FROM THERAPY. SAMMY WITH [employer] CALL LIGHT WITHIN REACH
--- NOTE | 2021-02-10 19:00 | NUR ---
RECEIVED CHANGE OF SHIFT REPORT FROM DAY SHIFT NURSE. CALL LIGHT WITHIN REACH, BED ALARM ON.
[2021-02-11 01:01] VITALS: BP 148/60; PULSE 61; TEMP 98.7
--- NOTE | 2021-02-11 01:16 | NUR ---
PATIENT SLEEPS INTERMITTENTLY. DENIES ANY NEEDS WHEN AWAKE AT THIS TIME. CALL LIGHT WITHIN REACH. BED ALARM ON.
[2021-02-11 05:42] VITALS: BP 154/68; PULSE 56; TEMP 98.1
--- NOTE | 2021-02-11 07:14 | NUR ---
Report received from Lorie RED. Patient is sleeping in bed. Call light and bedside table are within reach. Will continue to monitor patient throughout shift.
--- NOTE | 2021-02-11 07:34 | NUR ---
CHANGE OF SHIFT REPORT GIVEN TO DAY SHIFT NURSE, TOMÁS RED.
--- NOTE | 2021-02-11 11:00 | NUR ---
Call recieved from lab that patient had critical creatine of 4.3. Dr. Wilhelm made aware of patients lab values. NNO
[2021-02-11 12:00] VITALS: BP 164/70; PULSE 64; TEMP 97.8
[2021-02-11 12:45] LABS: BASO # 0.1 K/mm3 (0.0-0.2); BASO % 0.8 % (0.0-2.0); EOS # 0.2 K/mm3 (0.0-0.7); EOS % 3.3 % (0-4.0); GRAN # 4.7 K/mm3 (1.4-6.5); GRAN % 74.3 % (42.2-75.2); LYMPH # 0.7 K/mm3 (1.2-3.4); LYMPH % 10.5 % (20.0-51.0); MEAN CELL VOLUME 101 fl (80.0-100.0); MEAN CORPUSCULAR HGB CONC 31 g/dl (33.0-37.0); MEAN PLATELET VOLUME 8.9 fl (7.4-10.4); MONO # 0.7 K/mm3 (0.1-0.6); MONO % 10.8 % (1.7-9.3); PLATELET COUNT 310 K/mm3 (130-400); RED BLOOD COUNT 2.68 M/mm3 (4.20-5.60); REDCELL DISTRIBUTION WIDTH-CV 17.9 % (11.5-14.5)
[2021-02-11 12:51] LABS: HEMATOCRIT 27.1 % (42.0-52.0); HEMOGLOBIN 8.3 g/dl (13.5-18.0); MEAN CORPUSCULAR HEMOGLOBIN 31 pg (27.0-31.0)
[2021-02-11 13:02] LABS: ALBUMIN 2.4 gm/dL (3.4-4.8); CALCIUM 7.9 mg/dL (8.4-10.2); PHOSPHOROUS 4.1 mg/dL (2.3-4.7); POTASSIUM 4.7 mmol/L (3.5-4.5)
[2021-02-11 13:16] LABS: CREATININE, serum 4.36 mg/dL (0.72-1.25)
[2021-02-11 15:38] VITALS: BP 164/70; PULSE 64; TEMP 97.8
--- NOTE | 2021-02-11 15:39 | NUR ---
SORAIDA TOLERATED HD TX WITH 3.3 L FLUID REMOVAL TODAY. NEXT PLANNED HD TX ON Tuesday02/13/21 AFTER THERAPIES & LUNCH.
--- NOTE | 2021-02-11 16:01 | NUR ---
AMY contacted the patient's , Amber, to review the IPR Team Conference Notes. The team has set a tentative discharge date for next Tuesday, 02/17, with home health PT/OT. The patient's is in agreement to the plan. AMY reviewed Medicare.gov's list of home health agencies that go out to [place]. There is only one agency: [facility]. The patient's is in agreement to the plan. She reports that the patient has had services from [facility] in the past and is good with having services from them again. The team would also like to have the come in one day for some training. Amber reports that she can be here all day on Tuesday. AMY notified ST. AMY then met with the patient and presented the IPR Team Conference Notes to him. AMY reviewed the above. The patient is in agreement to the plan. AMY contacted and faxed a referral to [facility]. Awaiting screen.
--- NOTE | 2021-02-11 19:53 | NUR ---
PT RESTING IN BED. EATING HS SNACK. NO COMPLAINTS. CALL LIGHT IN REACH. BED ALARMSET.
[2021-02-12 00:59] VITALS: BP 139/57; PULSE 63; TEMP 98.2
[2021-02-12 04:58] VITALS: BP 150/61; PULSE 62; TEMP 98
--- NOTE | 2021-02-12 06:58 | NUR ---
Report received from NEDA Low. Patient is resting comfortably in bed. Call light and bedside table are within reach. Will continue to monitor patient throughout shift.
[2021-02-12 12:34] VITALS: BP 157/68; PULSE 54; TEMP 98.1
[2021-02-12 18:02] VITALS: BP 154/62; PULSE 56; TEMP 98.1
[2021-02-12 23:41] VITALS: BP 137/70; PULSE 55
--- NOTE | 2021-02-13 00:02 | NUR ---
SAMMY BARLOW. JANY GPROVIDED.
[2021-02-13 04:46] VITALS: BP 144/64; PULSE 57; TEMP 98.1
--- NOTE | 2021-02-13 06:15 | NUR ---
PT DENIES NEED TO VOID AT THIS TIME.
--- NOTE | 2021-02-13 07:19 | NUR ---
REPORT RECIEVED. PT RESTING IN BED. NO COMPLAINTS OF PAIN OR DYPSNEA. NO SIGNS OR SYMPTOMS OF DISTRESS. CALL LIGHT WITHIN REACH
--- NOTE | 2021-02-13 09:27 | NUR ---
PT ASSESSED. THERAPY WORKING WITH PT. NO COMPLAINTS OF PAIN OR DYSPNEA. NO SIGNS OR SYMPTOMS OF DISTRESS NOTED. AT BEDSIDE. CALL LIGHT WITHIN REACH
[2021-02-13 13:05] LABS: BASO # 0.1 K/mm3 (0.0-0.2); BASO % 0.9 % (0.0-2.0); EOS # 0.3 K/mm3 (0.0-0.7); EOS % 3.9 % (0-4.0); GRAN # 4.8 K/mm3 (1.4-6.5); GRAN % 76.1 % (42.2-75.2); LYMPH # 0.6 K/mm3 (1.2-3.4); LYMPH % 9.4 % (20.0-51.0); MEAN CELL VOLUME 102 fl (80.0-100.0); MEAN CORPUSCULAR HGB CONC 31 g/dl (33.0-37.0); MONO # 0.6 K/mm3 (0.1-0.6); MONO % 9.4 % (1.7-9.3); PLATELET COUNT 289 K/mm3 (130-400); RED BLOOD COUNT 2.62 M/mm3 (4.20-5.60); REDCELL DISTRIBUTION WIDTH-CV 17.9 % (11.5-14.5)
[2021-02-13 13:06] LABS: HEMATOCRIT 26.6 % (42.0-52.0); HEMOGLOBIN 8.3 g/dl (13.5-18.0); MEAN CORPUSCULAR HEMOGLOBIN 32 pg (27.0-31.0)
[2021-02-13 13:17] LABS: ALBUMIN 2.4 gm/dL (3.4-4.8); CALCIUM 8.2 mg/dL (8.4-10.2); POTASSIUM 4.5 mmol/L (3.5-4.5)
[2021-02-13 13:19] LABS: CREATININE, serum 4.26 mg/dL (0.72-1.25)
--- NOTE | 2021-02-13 15:36 | NUR ---
Viridiana, software sales manager, notified AMY that the patient's had questions about transportation to dialysis. AMY contacted the , Amber, to follow up. Amber reports that they have a pick-up truck. She reports that she thinks she can get him up into it, but may need some help. She reports that the patient has not practiced car transfers yet. She reports that her neighbor receives transportation to dialysis by a handicap accessible van. AMY informed her how Medicaid typically provides transportation services and that this may be what her neighbor is using. Amber states that she does not think her neighbor has Medicaid. SW informed her how traditional Medicare does not have transportation services. Amber verbalized understanding. AMY informed Amber how this SW can contact [facility] to inquire if there are any transportation services in the [facility] area. The patient will be going to dialysis in [place]. His was in agreement to this. SW to contact the therapy team to discuss working on car transfers here, before discharge. AMY attempted to contact the social work instructor at [facility] to follow up about any transportation services. AMY left her a voicemail.
--- NOTE | 2021-02-13 15:50 | NUR ---
PATIENT TOLERATED HIS DIALYSIS TX WITH 3.5L OF FLUID REMOVED TODAY. NEXT PLANNED HD TX ON Tuesday02/16/21 AFTER REHAB THERAPIES & LUNCH.
[2021-02-13 16:05] VITALS: BP 165/85; PULSE 61; TEMP 97.9
--- NOTE | 2021-02-13 16:22 | NUR ---
AMY contacted Ambika at [facility] in [place] about transportation services. Ambika reports that the patient's just contacted her. Ambika reports that she does not know of any transportation services. She reports that [employer] in [place] may provide transportation, but that there may also be qualifications for this. She reports that she informed the patient's of this and his was going to reach out to [place].
--- NOTE | 2021-02-13 18:38 | NUR ---
PT ASSISTED BACK TO BED PER REQUEST. NO COMPLAINTS OF PIAN OR DYSPNEA. NO SIGNS OR SYMPTOMS OF DISTRESS. CALL LIGHT WITHIN REACH
[2021-02-14 00:11] VITALS: BP 147/70; PULSE 63; TEMP 98.3
[2021-02-14 05:15] VITALS: BP 156/86; PULSE 61; TEMP 97.9
--- NOTE | 2021-02-14 07:10 | NUR ---
REPORT RECIEVED FROM SHELL FREEZING MACHINE OPERATOR. PT RESTING IN BED. NO COMPLAINTS OF PAIN OR DYSPNEA. NO SIGNS OR SYMPTOMS OF DISTRESS. CALL LIGHT WITHIN REACH
--- NOTE | 2021-02-14 09:22 | NUR ---
PT ASSESSED. NO SIGNS OR SYMPTOMS OF DISTRESS. NO COMPLAINTS OF PAIN OR DYSPNEA. CALL LIGHT WITHIN REACH
[2021-02-14 13:00] VITALS: BP 124/74; PULSE 84; TEMP 98.5
[2021-02-14 15:37] VITALS: BP 140/64; PULSE 53; TEMP 98.4
--- NOTE | 2021-02-14 18:22 | NUR ---
ASSISTED PT UP TO REST ROOM. NO COMPLICATIONS. PT HAD LARGE BM. BED CHANGE COMPLETE. ROOM TIDY. ASSISTED PT NATIVIDAD KTO BED. CALL LIGHT WITHIN REACH.
[2021-02-15 05:28] VITALS: BP 151/70; PULSE 58; TEMP 98.1
--- NOTE | 2021-02-15 07:56 | NUR ---
REPORT RECIEVED FROM NEDA RIVAS. NO COMPLAINTS OF PAIN OR DYSPNEA. NO SIGNS OR SYMPTOMS OF DISTRESS. PT IS SLEEPING IN BED. CALL LIGHT WITHIN REACH
--- NOTE | 2021-02-15 08:16 | NUR ---
PT ASSESSED. NO COMPLAINTS OF PAIN OR DYSPNEA. NO SIGNS OF DITRESS. PT EATING BREAKFAST. CALL LIGHT WITHIN REACH
[2021-02-15 12:33] VITALS: BP 135/64; PULSE 84; TEMP 98.5
[2021-02-15 15:21] VITALS: BP 142/77; PULSE 51; TEMP 97.5
--- NOTE | 2021-02-15 18:18 | NUR ---
PT ASSITED BACK TO BED. PROVIDED URINAL PER REQUEST. NO COMPLAINTS OF PAIN OR DYSPNEA. NO SIGNS OR SYMPTOMS OF DISTRESS. CALL LIGHT WITHIN REACH
--- NOTE | 2021-02-15 19:00 | NUR ---
RECEIVED CHANGE OF SHIFT REPORT FROM DAY SHIFT NURSE. PATIENT RESTING IN BED, BED ALARM WITH CALL LIGHT WITHIN REACH. DENIES ANY NEEDS AT TIME OF REPORT.
--- NOTE | 2021-02-15 20:20 | NUR ---
DENIES ANY CHEST PAIN/NAUSEA/SOA, DENIES NUMBNESS/TINGLING AT THIS TIME. CALL LIGHT WITHIN REACH, BED ALARM ON.
[2021-02-15 23:43] VITALS: BP 154/67; PULSE 56; TEMP 97.9
--- NOTE | 2021-02-16 01:51 | NUR ---
UP TO BATHROOM ROOM WITH STAND BY ASST BY STAFF NURSE. OBSERVED PATIENT PUTS DOWN PANTS/PULL UPS AND PULLS UP DISPOSABLE UNDERWEAR INDEPENDENTLY. REQUIRED SOME ASSIST WITH GETTING BLE INTO CORRECT PANT LEGS AFTER INITALLY ATTEMPT BUT ABLE TO PULL PANTS UP REST OF WAY.
--- NOTE | 2021-02-16 07:00 | NUR ---
Report received from NEDA Melo. PT in bed resting will continue to monitor.
[2021-02-16 07:06] VITALS: BP 154/71; PULSE 54; TEMP 98.1
--- NOTE | 2021-02-16 07:13 | NUR ---
CHANGE OF SHIFT REPORT GIVEN TO DAY SHIFT NURSE, MICHAEL RED.
--- NOTE | 2021-02-16 08:00 | NUR ---
Assessment hcarted. PT anticipating dialysis today this afternoon after therapy. REsting in chair, taking PO well. Able to tolerate fluid restrictions. Denies pain, will continue to monitor.
[2021-02-16 13:03] LABS: BASO # 0.1 K/mm3 (0.0-0.2); BASO % 1.4 % (0.0-2.0); EOS # 0.2 K/mm3 (0.0-0.7); EOS % 3.6 % (0-4.0); GRAN # 4.3 K/mm3 (1.4-6.5); GRAN % 73.8 % (42.2-75.2); LYMPH # 0.6 K/mm3 (1.2-3.4); LYMPH % 10.3 % (20.0-51.0); MEAN CELL VOLUME 101 fl (80.0-100.0); MEAN CORPUSCULAR HGB CONC 31 g/dl (33.0-37.0); MEAN PLATELET VOLUME 9.2 fl (7.4-10.4); MONO # 0.6 K/mm3 (0.1-0.6); MONO % 10.6 % (1.7-9.3); PLATELET COUNT 297 K/mm3 (130-400); RED BLOOD COUNT 2.77 M/mm3 (4.20-5.60); REDCELL DISTRIBUTION WIDTH-CV 17.6 % (11.5-14.5)
[2021-02-16 13:05] LABS: HEMATOCRIT 28.1 % (42.0-52.0); HEMOGLOBIN 8.7 g/dl (13.5-18.0); MEAN CORPUSCULAR HEMOGLOBIN 31 pg (27.0-31.0)
[2021-02-16 13:17] LABS: ALBUMIN 2.5 gm/dL (3.4-4.8); CALCIUM 7.9 mg/dL (8.4-10.2); PHOSPHOROUS 3.8 mg/dL (2.3-4.7); POTASSIUM 4.5 mmol/L (3.5-4.5)
[2021-02-16 13:21] LABS: CREATININE, serum 5.25 mg/dL (0.72-1.25)
--- NOTE | 2021-02-16 13:49 | NUR ---
Clinical updates faxed to [facility]. Contact made with the patient's Amber to follow up on transportation needs. Amber states that she got old of [place] and got transportation arranged for the patient to get to dialysis.
--- NOTE | 2021-02-16 15:27 | NUR ---
Patient tolerated HD tx with 3L of fluid removed today. Next planned HD tx on Tuesday02/18/21 @ [facility] in [place] @ [id number].
[2021-02-16 15:38] VITALS: BP 166/89; PULSE 59; TEMP 98.5
--- NOTE | 2021-02-16 16:33 | NUR ---
Pt returned from Dialysis, resting in chair at sdie of bed, requesting ice water and denies other needs, will continue to monitor.
[2021-02-16 17:15] VITALS: BP 176/77; PULSE 61; TEMP 98.3
--- NOTE | 2021-02-16 17:39 | NUR ---
Pt continues to rest in chair, eating supper, denies needs, will give report to nightshift nurse jackson caro resume care.
--- NOTE | 2021-02-16 20:38 | NUR ---
ALERT AND OX4. DENIES SOA, CHEST PAIN OR DIZZY. NO GENERAL PAIN. PM MEDS GIVEN. DIALYSIS M/W/F/. POSSIBLE DC TOMORROW. APPT SET UP BY DAY SHIFT RN. POC DISCUSSED FOR NIGHT. CALL LIGHT WI REACH.
[2021-02-17 01:18] VITALS: BP 156/71; PULSE 65; TEMP 98.1
[2021-02-17 05:40] VITALS: BP 160/74; PULSE 63; TEMP 98.3
--- NOTE | 2021-02-17 06:53 | NUR ---
Report received from NEDA Schaeffer. Patient is sleeping comfortably in bed. Call light and bedside table are within reach. Will continue to monitor patient throughout shift.
[2021-02-17] MEDS ORDERED: LASIX 80MG TABL80 MG PO (08:56)
--- NOTE | 2021-02-17 10:53 | NUR ---
Discharge orders faxed to Marly at [facility]
--- NOTE | 2021-02-17 11:29 | NUR ---
Patient's health summary, discharge summary, and home meds printed and reviewed with patient and his , Amber. Stressed importance of follow up appointments. Reviewed medications. Belongings gathered by patient's including distribution dispatcher, cell phone, and other personal items. Patient transported via WC by STARS COORDINATOR and seatbelted for ride home. Patient and denied having further questions.
--- NOTE | 2021-02-17 13:41 | NUR ---
Discharge QIM scores were reviewed by the team. Code of 6 chosen for rolling left to right was determined by team discussion to be the most usual performance before interventions for this patient during the assessment period. Code of 6 chosen for sit to lying was determined by team discussion to be the most usual performance before interventions for this patient during the assessment period.--Barb King,
[2021-02-17] MEDS ORDERED: PROTONIX 40MG T40 MG PO (13:49)
[2021-02-17] MEDS ORDERED: PROZAC 20MG20 MG PO (14:01)
== END 2021-02-17 10:55 | disposition home health service (06) | DRG 91 ==
PROVIDERS: Internal Medicine Gastroenterology; Internal Medicine Nephrology; Nurse Practitioner Family; Physician Assistant; ADMIT Internal Medicine
DX: G72.89 Other specified myopathies (principal); N18.6 End stage renal disease; G93.41 Metabolic encephalopathy; I69.351 Hemiplegia and hemiparesis following cerebral infarction affecting right dominant side; N39.0 Urinary tract infection, site not specified; Z99.2 Dependence on renal dialysis; E11.22 Type 2 diabetes mellitus with diabetic chronic kidney disease; D63.1 Anemia in chronic kidney disease; I10 Essential (primary) hypertension; E78.5 Hyperlipidemia, unspecified; E83.39 Other disorders of phosphorus metabolism; J44.9 Chronic obstructive pulmonary disease, unspecified; F32.A Depression, unspecified; J32.0 Chronic maxillary sinusitis; R26.89 Other abnormalities of gait and mobility; N40.0 Benign prostatic hyperplasia without lower urinary tract symptoms; Z91.81 History of falling; Z87.891 Personal history of nicotine dependence; Z88.8 Allergy status to other drugs, medicaments and biological substances; Z79.82 Long term (current) use of aspirin; Z79.2 Long term (current) use of antibiotics; Z73.6 Limitation of activities due to disability; Z79.899 Other long term (current) drug therapy; N40.1 Benign prostatic hyperplasia with lower urinary tract symptoms; N39.498 Other specified urinary incontinence; R19.5 Other fecal abnormalities; Z87.11 Personal history of peptic ulcer disease
CPT/HCPCS: 99231-AI; 99232-AI; 99233-AI; 99239; A4314; J1644; J1756; J2704; J7030; Q5105